=== PATIENT | female | born 1965 | race Two or more races ===

== ENCOUNTER 2020-06-16 05:11 | Day surgery (SDC) | payer OTHER | END 2020-06-16 10:15 | disposition home or self-care (01) | LOC: AMB-ENDOS 05:11 → EKG 05:11 → AMB-ENDOS 10:15 → EKG 13:45 | PROVIDERS: ATTEND Colon & Rectal Surgery | DX: K62.89 Other specified diseases of anus and rectum (principal); Z93.3 Colostomy status; K64.0 First degree hemorrhoids; Z20.828 Contact with and (suspected) exposure to other viral communicable diseases ==

== ENCOUNTER 2020-10-20 11:06 | Outpatient (CLI) | payer OTHER | END 2020-10-20 11:20 | disposition home or self-care (01) | LOC: RX STUDY 11:06 | PROVIDERS: ATTEND Colon & Rectal Surgery | DX: Z93.3 Colostomy status (principal); C56.9 Malignant neoplasm of unspecified ovary ==

== ENCOUNTER 2020-11-23 09:26 | Outpatient (CLI) | payer OTHER | END 2020-11-23 09:44 | disposition home or self-care (01) | LOC: TOM 09:26 | PROVIDERS: ATTEND Colon & Rectal Surgery | DX: C56.9 Malignant neoplasm of unspecified ovary (principal); Z93.2 Ileostomy status ==

== ENCOUNTER 2021-01-09 11:45 | Inpatient (IN) | payer OTHER ==
[~2021-01-09] VITALS: Ht 175.3 cm; Wt 72.6 kg
[2021-01-09] MEDS ORDERED: TYLENOL COLD M1 EAC2 PO (15:23)
[2021-01-09] MEDS ORDERED: GABAPENTIN100 M2 PO (15:23)
[2021-01-09] MEDS ORDERED: VOLTAREN100 GM TOP (15:24)
[2021-01-21] MEDS ORDERED: PERCOCET 5-3251 EACH PO ×2 (12:40)
[2021-01-21] MEDS ORDERED: LEVSIN/SL0.125 MG SL ×2 (12:40)
== END 2021-01-21 17:03 | disposition home or self-care (01) | DRG 330 ==
LOC: O/R 01-16 07:50 → SURG 01-16 07:50 → SURH 01-16 10:15 → SURG 01-16 18:47
PROVIDERS: ADMIT Colon & Rectal Surgery; ATTEND Colon & Rectal Surgery
PROC: 0WQF0ZZ Repair Abdominal Wall, Open Approach (ICD-10-PCS; 2021-01-16)
PROC: 0DNW0ZZ Release Peritoneum, Open Approach (ICD-10-PCS; 2021-01-16)
PROC: 30233N1 Transfusion of Nonautologous Red Blood Cells into Peripheral Vein, Percutaneous Approach (ICD-10-PCS; 2021-01-16)
PROC: 0DBB0ZZ Excision of Ileum, Open Approach (ICD-10-PCS; principal; 2021-01-16 10:15)
DX: Z43.2 Encounter for attention to ileostomy (principal); D62 Acute posthemorrhagic anemia; K43.2 Incisional hernia without obstruction or gangrene; K66.0 Peritoneal adhesions (postprocedural) (postinfection)